=== PATIENT | male | born 1945 | race Caucasian/White ===

== ENCOUNTER 2017-05-23 17:53 | Inpatient (IN) | payer OTHER, MEDICAID ==
[~2017-05-23] VITALS: Ht 185.4 cm; Wt 83.5 kg
[~2017-05-23 17:53] MED LIST: BETH25TA47 PO; DEXL60EC5 PO; DONE10TA3 PO; FENT100T TD; FENT50TD45 TD; FOLI1TAB19 PO; LABE100T20 PO; METH-1177 PO; METO25TA PO; POTA20TE62 PO; PRED10TA5 PO; QUET150T PO; QUET400T PO; SILO8CAP PO; SUCR1TAB35 PO; TAMS0.4C96 PO; VENL150C1 PO; ZOLP10TA1 PO; [UNRECOGNIZED DRUG - CODE] PO
[2017-05-23 17:58] VITALS: BP 133/95
--- NOTE | 2017-05-23 18:17 | NUR ---
PATIENT BIB [facility] TO ER BED 4.
--- NOTE | 2017-05-23 18:17 | NUR ---
PATIENT BIB EMS WITH C/O GENERALYZED PAIN 6/10; CAME FROM [facility] RUN OUT OF FENTANYL PATCH;HX OF AFIB, AHD, ANXIETY;PT FEELS NAUSEOUS BUT DENIES VOMITTING;SKIN IS PINK/WARM/DRY; AAOX4 WITH EVEN AND STEADY GAIT; LUNGS CLEAR BL; HR EVEN AND REGULAR; PT DENIES ANY FEVER,SOB, OR COUGH AT THIS TIME; PATIENT STATES PAIN OF 6/10 AT THIS TIME;PATIENT POSITIONED FOR COMFORT; HOB ELEVATED; BEDRAILS UP X2; BED DOWN. ALL MONITORS IN PLACED;ER MD MADE AWARE OF PT STATUS.
[2017-05-23] MEDS ORDERED: fentaNYL 0.1 MG/HR PATCH TD SCH (18:25)
--- NOTE | 2017-05-23 18:36 | NUR ---
CALLED HOUSE SUP;FENTANYL PATCH IS NOT AVAILABLE IN [facility];
[2017-05-23 18:46] LABS: BASOPHILS # (AUTO) 0.5 K/uL (0.00-0.22); EOSINOPHILS # (AUTO) 0.2 K/uL (0-0.4); LYMPHOCYTES # (AUTO) 1.4 K/uL (2.0-11.5); MEAN CORPUSCULAR HEMOGLOBIN 30 pg (27-31); MEAN CORPUSCULAR HGB CONC 33 g/dL (33-37); MEAN CORPUSCULAR VOLUME 91 fL (80-94); MONOCYTES # (AUTO) 0.2 K/uL (0.8-1.0); NEUTROPHILS # (AUTO) 4.4 K/uL (1.8-7.7); PLATELET COUNT (AUTO) 152 K/uL (140-450); RED CELL DISTRIBUTION WIDTH 14.4 % (11.6-13.7); WHITE BLOOD COUNT (AUTO) 6.7 K/uL (4.8-10.8)
[2017-05-23 18:49] LABS: APPEARANCE,URINE HAZY (CLEAR); BILIRUBIN,URINE NEGATIVE (NEGATIVE); BLOOD, URINE 3+ (NEGATIVE); COLOR,URINE YELLOW (YELLOW); LEUKOCYTE ESTERASE ,URINE 3+ (NEGATIVE); NITRITE, URINE NEGATIVE (NEGATIVE); PH,URINE 8.5 (5.0-9.0); UGLUCOSE NEGATIVE (NEGATIVE)
[2017-05-23 18:52] LABS: RBC,URINE 11-20 (MOD) /HPF (0-5); WBC,URINE TOO MANY TO COUNT /HPF (0-5)
--- NOTE | 2017-05-23 19:18 | NUR ---
Pt report given to MIGUEL A JEAN. Transfer of care at this time.
[2017-05-23] MEDS ORDERED: fentaNYL 0.05 MG/ML VIAL IVP ONE (19:35)
[2017-05-23] MEDS ORDERED: NACL 0.9% 1,000 ML IV ONE (19:35)
[2017-05-23] MEDS ORDERED: LEVOFLOXACIN 500 MG/D5W PREMIX 100 ML IV ONE (19:40)
[2017-05-23] MEDS: NACL 0.9% 1,000 ML IV SCH (19:47)
[2017-05-23] MEDS ORDERED: ONDANSETRON 4 MG/2 ML VIAL IM/IVP PRN (19:50)
[2017-05-23] MEDS ORDERED: ACETAMINOPHEN 325 MG TAB PO PRN (19:50)
[2017-05-23] MEDS ORDERED: HYDROcodone/APAP 7.5/325 MG 1 TAB PO PRN (19:50)
[2017-05-23] MEDS ORDERED: DOCUSATE SODIUM 100 MG GELCAP PO PRN (19:50)
[2017-05-23 20:01] LABS: ANION GAP 13.5 (8-16); CARBON DIOXIDE 26.2 mmol/L (21-32); CHLORIDE 102 mmol/L (98-107); POTASSIUM 3.7 mmol/L (3.5-5.1); SODIUM SERUM 138 mmol/L (136-145)
[2017-05-23 20:02] LABS: ALBUMIN 3.1 g/dL (3.4-5.0); ASPARTATE AMINOTRANSFERASE 21 U/L (15-37); CREATININE 1.1 mg/dL (0.7-1.3); GLUCOSE 123 mg/dL (74-106); TOTAL BILIRUBIN 0.4 mg/dL (0.0-1.0); UREA NITROGEN, BLOOD 14 mg/dL (7-18)
--- NOTE | 2017-05-23 20:29 | NUR ---
Patient will be admitted to care of DR VELAZQUEZ. Admited to TELE 116. Will go to room 116. Belongings list completed. Report to ANNY JEAN .
[2017-05-23 20:50] VITALS: BP 126/101
--- NOTE | 2017-05-23 20:50 | NUR ---
ADMITTED PATIENT TO TELE UNIT, PATIENT AWAKE ALERT ORIENTED X4, NO S/S OF ACUTE DISTRESS NOTED, RESPIRATION EVEN AND UNLABORED. IV PATENT AND INTACT. LANDAVERDE IN PLACE AND DRAINING URINE BY GRAVITY. CALL LIGHT WITHIN REACH, SAFETY MEASURE ENSURED, WILL CONTINUE TO MONITOR.
[2017-05-23 21:00] LABS: MAGNESIUM 1.9 mg/dL (1.8-2.4); THYROID STIMULATING HORMONE 1.76 uIU/mL (0.34-3.74)
[2017-05-23] MEDS ORDERED: LABETALOL 100 MG TAB PO SCH (21:00)
--- NOTE | 2017-05-23 21:19 | NUR ---
Patient noted to have existing wounds upon arrival to ER. Photos taken of wound and placed in chart. Wound covered with dressing. Physician informed.
[2017-05-23] MEDS: ZOLPIDEM 10 MG TAB PO SCH (21:54)
[2017-05-23] MEDS: BETHANECHOL 25 MG TAB PO SCH (21:54)
[2017-05-23] MEDS: TAMSULOSIN 0.4 MG CAP PO SCH (21:55)
[2017-05-23] MEDS: QUEtiapine FUMARATE 100 MG TAB PO SCH (21:55)
[2017-05-23] MEDS: METOPROLOL 25 MG TAB PO SCH (21:55)
--- NOTE | 2017-05-23 22:00 | NUR ---
DR. LACEY WAS IN THE ROOM AND EXAMINED THE PATIENT. DR. LACEY SAID," YES, IT'S OKAY TO GIVE HIS PM MEDICATIONS." PM MEDICATIONS GIVEN, PATIENT TOLERATED WELL. WILL CONTINUE TO MONITOR.
[2017-05-24] MEDS: SUCRALFATE 1 GM TAB PO SCH ×4 (00:28→18:52)
[2017-05-24 00:32] VITALS: BP 76/64
[2017-05-24] MEDS ORDERED: NACL 0.9% 2,000 ML IV ONE (00:35)
[2017-05-24] MEDS ORDERED: LOPERAMIDE 1 MG/5 ML ORASYR PO PRN (00:40)
--- NOTE | 2017-05-24 00:56 | NUR ---
BP 76/64, HR 114. ASYMPTOMATIC, ORIENTED X4, PUT PATIENT IN REVERSE [place] POSITION. MADE DR. LACEY AWARE, RECEIVED ORDER OF GIVING NORMAL SALINE BOLUS 1 L FIRST, CHECK BP AFTER THE BOLUS, AND THEN NOTIFY HIM.
--- NOTE | 2017-05-24 02:17 | NUR ---
BP 90/62, HR 104, MADE DR. LACEY AWARE, RECEIVED INSTRUCTION TO START 1 L OF NORMAL SALINE BOLUS.
[2017-05-24 04:00] VITALS: BP 98/57
--- NOTE | 2017-05-24 04:05 | NUR ---
BP 98/57, HR 93. RR19. PATIENT SLEEPING IN BED, EASY TO AROUSE, NO S/S OF ACUTE DISTRESS NOTED, RESPIRATION EVEN AND UNLABORED, CALL LIGHT WITHIN REACH, SAFETY MEASURE ENSURED, WILL CONTINUE TO MONITOR.
--- NOTE | 2017-05-24 05:48 | NUR ---
PATIENT SLEEPING IN BED, NO S/S OF ACUTE DISTRESS NOTED, RESPIRATION EVEN AND UNLABORED, CALL LIGHT WITHIN REACH, SAFETY MEASURE ENSURED, WILL CONTINUE TO MONITOR.
[2017-05-24] MEDS: NACL 0.9% 1,000 ML IV SCH ×2 (06:33→19:02)
[2017-05-24 06:54] LABS: BASOPHILS # (AUTO) 0.3 K/uL (0.00-0.22); BASOPHILS % (AUTO) 4.4 % (0.0-2.0); EOSINOPHILS # (AUTO) 0.2 K/uL (0-0.4); HEMATOCRIT 35.5 % (36-52); HEMOGLOBIN 11.7 g/dL (12.0-18.0); LYMPHOCYTES # (AUTO) 2.4 K/uL (2.0-11.5); LYMPHOCYTES % (AUTO) 40.2 % (20.5-51.1); MEAN CORPUSCULAR HEMOGLOBIN 30 pg (27-31); MEAN CORPUSCULAR HGB CONC 33 g/dL (33-37); MEAN CORPUSCULAR VOLUME 92 fL (80-94); MONOCYTES # (AUTO) 0.4 K/uL (0.8-1.0); MONOCYTES % (AUTO) 6.2 % (1.7-9.3); NEUTROPHILS # (AUTO) 2.7 K/uL (1.8-7.7); NEUTROPHILS % (AUTO) 46.2 % (42.2-75.2); PLATELET COUNT (AUTO) 133 K/uL (140-450); RED BLOOD CELL COUNT(AUTO) 3.86 MIL/uL (4.20-6.10); RED CELL DISTRIBUTION WIDTH 14.4 % (11.6-13.7)
[2017-05-24 07:21] LABS: ANION GAP 10.8 (8-16); CARBON DIOXIDE 24.2 mmol/L (21-32); CHLORIDE 109 mmol/L (98-107); CREATININE 0.9 mg/dL (0.7-1.3); GLUCOSE 81 mg/dL (74-106); SODIUM SERUM 141 mmol/L (136-145); UREA NITROGEN, BLOOD 11 mg/dL (7-18)
--- NOTE | 2017-05-24 07:27 | NUR ---
PATIENT HAS BEEN SCREENED AND CATEGORIZED LOW NUTRITION RISK. PATIENT WILL BE SEEN WITHIN 7 DAYS OF ADMISSION. 05/29/17 ELSY PARKER MS, RDN
[2017-05-24 07:29] LABS: MAGNESIUM 1.7 mg/dL (1.8-2.4); PHOSPHORUS 3.8 mg/dL (2.5-4.9)
--- NOTE | 2017-05-24 07:31 | NUR ---
ENDORSED PLAN OF CARE TO DAY RN. PATIENT IS IN STABLE CONDITION.
--- NOTE | 2017-05-24 07:31 | NUR ---
RECEIVED REPORT FROM PM NURSE FOR CONTINUITY OF CARE. INITIAL ASSESSMENT DONE. PT SLEEPING BUT AWAKENS EASILY. RESP EVEN AND UNLABORED. IV IS PATENT, NO SWELLING OR REDNESS NOTED. SKIN IS WARM AND DRY, ERYTHEMA NOTED ON PT'S BUTTOCKS AND SCROTAL AREA. DISCUSSED PLAN OF CARE WITH PT, VERBALIZED UNDERSTANDING. SAFETY PLACED IN MEASURE. BED LOCKED ON LOW POSITION, CALL LIGHT WITHIN REACH, SIDE RAILS UP. WILL CONTINUE TO MONITOR.
[2017-05-24 08:00] VITALS: BP 105/71
[2017-05-24] MEDS: FOLIC ACID 1 MG TAB PO SCH (09:41)
[2017-05-24] MEDS: POTASSIUM CHLORIDE 10 MEQ TABER PO SCH (09:41)
[2017-05-24] MEDS: VENLAFAXINE XR 75 MG CAPER PO SCH (09:43)
[2017-05-24] MEDS: BETHANECHOL 25 MG TAB PO SCH ×2 (09:43→21:18)
[2017-05-24] MEDS: DONEPEZIL 10 MG TAB PO SCH (09:43)
[2017-05-24] MEDS: METOPROLOL 25 MG TAB PO SCH ×2 (09:52→21:31)
[2017-05-24] MEDS ORDERED: MAG SULF 2000 MG/WATER PREMIX 50 ML IV ONE (10:30)
--- NOTE | 2017-05-24 10:49 | NUR ---
PT STATED THAT NORCO DID NOT WORK, REQUESTING MORPHINE. WILL MEDICATE PER MD'S ORDER. VS STABLE. SAFETY MEASURES IN PLACE. WILL CONTINUE TO MONITOR. Addendum: 05/24/17 at 1526 by Vikki Weinberg RN AWAITING FOR MD'S ORDERS
[2017-05-24] MEDS ORDERED: POTASSIUM CHLORIDE 40 MEQ, LIDOCAINE 1% 25 MG in NACL 0.9% 250 ML IV ONE (11:00)
[2017-05-24] MEDS: MORPHINE SULFATE 2 MG/ML SYR IVP PRN (11:03)
[2017-05-24 12:00] VITALS: BP 107/68
--- NOTE | 2017-05-24 13:42 | NUR ---
PT'S BROTHER, EVA, CALLED AND STATED THAT [facility] HAS SHUTTLE SERVICE AND TO CALL THEM @[phone] UPON PT'S DISCHARGE. HE ALSO STATED TO CALL HIM @ [phone] FOR ANY QUESTIONS AND CLARIFICATION. PT GAVE CONSENT TO RELEASE INFORMATION TO HIS BROTHER.
[2017-05-24] MEDS ORDERED: BISACODYL 10 MG SUPP RC PRN (14:20)
[2017-05-24] MEDS ORDERED: fentaNYL 0.075 MG/HR PATCH TD SCH (15:00)
--- NOTE | 2017-05-24 15:13 | NUR ---
AWAITING FOR MD'S ORDER. Addendum: 05/24/17 at 1637 by Vikki Weinberg RN PT C/O GENERALIZED PAIN, STATED MORPHINE AND NORCO IS NOT WORKING. PT IS REQUESTING FOR FENTANYL. INFORMED MD. AWAITING FOR ORDERS.
--- NOTE | 2017-05-24 15:50 | NUR ---
DC'ED PT'S OLD LANDAVERDE, CATH TIP SENT TO THE LAB PER MD'S ORDER. INSERTED NEW 16FR LANDAVERDE USING STERILE TECHNIQUE. PT TOLERATED PROCEDURE WELL. URINE RETURN NOTED, LIGHT YELLOW URINE WITH SEDIMENTS. FENTANYL PATCH APPLIED ON CHEST WALL PER MD'S ORDER. STOOL SOFTENER AND SUPPOSITORY GIVEN PER PT'S REQUEST. WILL CONTINUE TO MONITOR.
[2017-05-24 16:00] VITALS: BP 141/87
[2017-05-24] MEDS: fentaNYL 0.075 MG/HR PATCH TD SCH (16:30)
--- NOTE | 2017-05-24 16:35 | NUR ---
PT C/O GENERALIZED PAIN, STATED MORPHINE AND NORCO IS NOT WORKING. PT IS REQUESTING FOR FENTANYL. INFORMED MD. AWAITING FOR ORDERS. Addendum: 05/24/17 at 1637 by Vikki Weinberg RN PLEASE DISREGARD ABOVE NOTE. DUPLICATE.
--- NOTE | 2017-05-24 18:38 | NUR ---
PT REPORTS FENTANYL PATCH STARTING TO WORK ON HIS PAIN, RESP EVEN UNLABORED ON ROOM AIR, PT SPEAKING CLEARLY WITHOUT PROBLEM, PT APPEARS COMFORTABLE. CALL SILVA WITHIN REACH, SIDE RAILS UP, LANDAVERDE DRAINING WELL, WILL CONTIUE TO MONITOR.
--- NOTE | 2017-05-24 18:55 | NUR ---
LAB CALLED, REQUESTED TO CHANGE ORDER TO AEROBIC CULTURE SOURCE CATHETER. INFORMED .
--- NOTE | 2017-05-24 19:42 | NUR ---
ENDORSED CARE TO PM NURSE FOR CONTINUITY OF CARE. PT IN STABLE CONDITION.
--- NOTE | 2017-05-24 19:43 | NUR ---
RECD. RESTING IN BED, AWAKE, A/OX4. BLIND IN THE LEFT EYE. RESPIRATION EVEN AND UNLABORED. IV OF NS AT 80 ML/HR INFUSING , RIGHT FA G 22. F/C PATENT DRAINING CLEAR YELLOW URINE. ON BILATERAL LEG SEQUENTIALS. SAFETY MEASURES ENFORCED. BED ON ALARM. VERBALIZED UNDERSTANDING. DENIES PAIN 0/10.
[2017-05-24 20:00] VITALS: BP 144/85
[2017-05-24] MEDS ORDERED: LEVOFLOXACIN 500 MG/D5W PREMIX 100 ML IV SCH (21:00)
--- NOTE | 2017-05-24 21:00 | NUR ---
Patient's Plan of Care was discussed and reviewed with CHUMMER: AILEEN RICO
[2017-05-24] MEDS: ZOLPIDEM 10 MG TAB PO SCH (21:17)
[2017-05-24] MEDS: PREGABALIN 50 MG CAP PO SCH (21:17)
[2017-05-24] MEDS: TAMSULOSIN 0.4 MG CAP PO SCH (21:17)
[2017-05-24] MEDS: QUEtiapine FUMARATE 100 MG TAB PO SCH (21:18)
[2017-05-24] MEDS: APIXABAN 2.5 MG TAB PO SCH (21:20)
--- NOTE | 2017-05-24 21:20 | NUR ---
DUE PO MEDICATIONS GIVEN. STATED HE TAKES TRAZADONE AT NIGHT. HE HAS BEEN DRINKING IT FOR YEARS BUT WAS NOT IN THE MED RECONCILIATION. WILL INFORM
[2017-05-24] MEDS: LEVOFLOXACIN 250 MG/D5 PREMIX 50 ML IV SCH (21:59)
[2017-05-24] MEDS ORDERED: LORazepam 0.5 MG TAB PO SCH (22:25)
[2017-05-25] VITALS (7 sets, daily range): BP systolic 104–134; BP diastolic 69–86
--- NOTE | 2017-05-25 00:15 | NUR ---
GETTING ANXIETY REGARDING HIS REQUEST FOR TRAZODONE. MEDICATED WITH ATIVAN 0.5 MG.PO.
--- NOTE | 2017-05-25 01:10 | NUR ---
NO ANXIETY NOTED, SLEEPING SNORING IN BED.
[2017-05-25] MEDS: NACL 0.9% 1,000 ML IV SCH ×3 (02:59→18:10)
[2017-05-25] MEDS: SUCRALFATE 1 GM TAB PO SCH ×4 (06:00→18:00)
[2017-05-25 06:12] LABS: HEMATOCRIT 34.8 % (36-52); HEMOGLOBIN 11.3 g/dL (12.0-18.0); MEAN CORPUSCULAR HEMOGLOBIN 30 pg (27-31); MEAN CORPUSCULAR HGB CONC 32 g/dL (33-37); MEAN CORPUSCULAR VOLUME 93 fL (80-94); PLATELET COUNT (AUTO) 134 K/uL (140-450); RED BLOOD CELL COUNT(AUTO) 3.75 MIL/uL (4.20-6.10); RED CELL DISTRIBUTION WIDTH 15.1 % (11.6-13.7); WHITE BLOOD COUNT (AUTO) 4.9 K/uL (4.8-10.8)
[2017-05-25 06:44] LABS: ANION GAP 9.6 (8-16); CARBON DIOXIDE 26.2 mmol/L (21-32); CHLORIDE 111 mmol/L (98-107); CREATININE 0.8 mg/dL (0.7-1.3); GLUCOSE 81 mg/dL (74-106); POTASSIUM 3.8 mmol/L (3.5-5.1); SODIUM SERUM 143 mmol/L (136-145); UREA NITROGEN, BLOOD 8 mg/dL (7-18)
[2017-05-25 06:45] LABS: PHOSPHORUS 3.6 mg/dL (2.5-4.9)
--- NOTE | 2017-05-25 07:00 | NUR ---
ABLE TO SLEPT WELL. CONDITION REMAIN STABLE. ALL NEEDS ATTENDED. SAFETY MAINTAINED DURING SHIFT. WILL ENDORSE TO AM NURSE FOR CONTINUITY OF CARE.
--- NOTE | 2017-05-25 07:14 | NUR ---
ASSUMED CONTINUITY OF CARE. NO SIGNS AND SYMPTOMS OF ACUTE DISTRESS NOTED. INITIAL ASSESSMENT DONE. KEEP COMFORTABLE ON BED. EXPLAINED DIAGNOSIS, PLAN OF CARE, PAIN MANAGEMENT TEACHING, CONTACT ISOLATION PRECAUTION, USE OF CALL LIGHT/BED/TV/BATHROOM. VERBALIZED UNDERSTANDING. FALL PRECAUTION APPLIED. CALL LIGHT WITHIN REACH.
--- NOTE | 2017-05-25 07:20 | NUR ---
ENDORSED TO FRANCIS WORKMAN FOR CONTINUITY OF CARE.
[2017-05-25 07:54] LABS: EOSINOPHILS % (MANUAL) 8 % (0-4); LYMPHOCYTES % (MANUAL) 46 % (20-46); MONOCYTES % (MANUAL) 5 % (5-12)
--- NOTE | 2017-05-25 08:00 | NUR ---
Patient's Plan of Care was discussed and reviewed with POSTDOCTORAL FELLOW: MADALYN HARRISON
[2017-05-25] MEDS: DONEPEZIL 10 MG TAB PO SCH (08:27)
[2017-05-25] MEDS: LACTOBACILLUS RHAMNOSUS GG 1 EACH CAP PO SCH (08:28)
[2017-05-25] MEDS: VENLAFAXINE XR 75 MG CAPER PO SCH (08:28)
[2017-05-25] MEDS: FOLIC ACID 1 MG TAB PO SCH (08:29)
[2017-05-25] MEDS: METOPROLOL 25 MG TAB PO SCH ×2 (08:29→21:55)
[2017-05-25] MEDS: POTASSIUM CHLORIDE 10 MEQ TABER PO SCH (08:29)
[2017-05-25] MEDS: BETHANECHOL 25 MG TAB PO SCH ×2 (08:30→20:24)
[2017-05-25] MEDS: PREGABALIN 50 MG CAP PO SCH ×2 (08:30→20:25)
[2017-05-25] MEDS: APIXABAN 2.5 MG TAB PO SCH ×2 (08:33→20:42)
--- NOTE | 2017-05-25 09:05 | NUR ---
WENT TO CT VIA [facility]. NO ACUTE DISTRESS NOTED.
[2017-05-25] MEDS ORDERED: MUPIROCIN 2% OINT 22 GM TUBE TP SCH (09:42)
[2017-05-25] MEDS: CHLORHEXADINE GLUC 2% CLOTH TP SCH (10:37)
--- NOTE | 2017-05-25 11:30 | NUR ---
DR. WONG, [facility], CHECKED PT. CHART. NO ORDER RECEIVED.
--- NOTE | 2017-05-25 12:57 | NUR ---
INFORMED DR. CORDERO THAT PT. REFUSING CARAFATE [address] GM PO Q[address] CORDERO, SHE WILL D/C MEDS.
[2017-05-25] MEDS: ALUMINUM HYD/MAG/SIMETHICONE 30 ML UDC PO PRN (18:11)
--- NOTE | 2017-05-25 18:58 | NUR ---
IN STABLE CONDITION. IVF INFUSING WELL.
--- NOTE | 2017-05-25 19:30 | NUR ---
RECEIVED REPORT FROM DAY RN AT BEDSIDE, PATIENT IS AAO X4 ON ROOM AIR, NO SOB OR SIGN OF DISTRESS AT THIS TIME, IV TO RIGHT FA PATENT AND INTACT, PATIENT SKIN INTACT WITH ERYTHEMA TO BUTTOCKS AND PERINEUM. PATIENT IS BLIND IN LEFT EYE. LANDAVERDE PRESENT DRAINING TO GRAVITY. SCDS ON. PATIENT DENIES PAIN AT THIS TIME. DISCUSSED PLAN OF CARE WITH PATIENT, PT VERBALIZED UNDERSTANDING, CALL LIGHT WITHIN REACH. WILL CONTINUE TO MONITOR.
[2017-05-25] MEDS: ZOLPIDEM 10 MG TAB PO SCH (20:25)
[2017-05-25] MEDS: QUEtiapine FUMARATE 100 MG TAB PO SCH (20:26)
[2017-05-25] MEDS: LEVOFLOXACIN 250 MG/D5 PREMIX 50 ML IV SCH (20:29)
[2017-05-25] MEDS: TAMSULOSIN 0.4 MG CAP PO SCH (20:37)
--- NOTE | 2017-05-25 20:38 | NUR ---
PM MEDS ADMINISTERED, PATIENT TOLERATED WELL, CALL LIGHT WITHIN REACH. WILL CONTINUE TO MONITOR.
--- NOTE | 2017-05-25 22:30 | NUR ---
PATIENT SLEEPING, NO SIGN OF DISTRESS, CALL LIGHT WITHIN REACH. WILL CONTINUE TO MONITOR.
[2017-05-26] VITALS: BP 108/61
--- NOTE | 2017-05-26 00:36 | NUR ---
VITAL SIGNS STABLE, PT SLEEPING, EASILY AWOKEN. NO SIGNS OF DISTRESS, CALL LIGHT WITHIN REACH. WILL CONTINUE TO MONITOR.
--- NOTE | 2017-05-26 02:00 | NUR ---
PATIENT SLEEPING, NO SIGN OF DISTRESS, CALL LIGHT WITHIN REACH. WILL CONTINUE TO MONITOR
[2017-05-26 04:00] VITALS: BP 103/58
--- NOTE | 2017-05-26 04:05 | NUR ---
VITAL SIGNS STABLE, NO SOB OR SIGN OF DISTRESS, CALL LIGHT WITHIN REACH. WILL CONTINUE TO MONITOR
[2017-05-26] MEDS: SUCRALFATE 1 GM TAB PO SCH ×4 (05:07→17:04)
[2017-05-26 06:31] LABS: BASOPHILS # (AUTO) 0.2 K/uL (0.00-0.22); BASOPHILS % (AUTO) 4.6 % (0.0-2.0); EOSINOPHILS # (AUTO) 0.3 K/uL (0-0.4); EOSINOPHILS % (AUTO) 5.4 % (0.0-4.0); HEMATOCRIT 33.8 % (36-52); LYMPHOCYTES # (AUTO) 2.1 K/uL (2.0-11.5); LYMPHOCYTES % (AUTO) 43.5 % (20.5-51.1); MEAN CORPUSCULAR HEMOGLOBIN 30 pg (27-31); MEAN CORPUSCULAR HGB CONC 33 g/dL (33-37); MEAN CORPUSCULAR VOLUME 93 fL (80-94); MONOCYTES # (AUTO) 0.3 K/uL (0.8-1.0); MONOCYTES % (AUTO) 5.9 % (1.7-9.3); NEUTROPHILS % (AUTO) 40.6 % (42.2-75.2); PLATELET COUNT (AUTO) 137 K/uL (140-450); RED BLOOD CELL COUNT(AUTO) 3.63 MIL/uL (4.20-6.10); RED CELL DISTRIBUTION WIDTH 15.1 % (11.6-13.7); WHITE BLOOD COUNT (AUTO) 4.9 K/uL (4.8-10.8)
[2017-05-26 06:48] LABS: ANION GAP 10.9 (8-16); CARBON DIOXIDE 26.2 mmol/L (21-32); CHLORIDE 111 mmol/L (98-107); CREATININE 0.8 mg/dL (0.7-1.3); GLUCOSE 75 mg/dL (74-106); POTASSIUM 4.1 mmol/L (3.5-5.1); SODIUM SERUM 144 mmol/L (136-145); UREA NITROGEN, BLOOD 8 mg/dL (7-18)
--- NOTE | 2017-05-26 07:19 | NUR ---
ENDORSED PATIENT TO DAY RN AT BEDSIDE, PATIENT IN STABLE CONDITION
[2017-05-26 08:00] VITALS: BP 135/78
--- NOTE | 2017-05-26 08:00 | NUR ---
Patient's Plan of Care was discussed and reviewed with SPEEDBOAT OPERATOR: MADALYN HARRISON
[2017-05-26] MEDS: NACL 0.9% 1,000 ML IV SCH ×2 (08:32→21:02)
[2017-05-26] MEDS: METOPROLOL 25 MG TAB PO SCH ×2 (08:33→16:44)
[2017-05-26] MEDS: TAMSULOSIN 0.4 MG CAP PO SCH (08:34)
[2017-05-26] MEDS: POTASSIUM CHLORIDE 10 MEQ TABER PO SCH (08:34)
[2017-05-26] MEDS: BETHANECHOL 25 MG TAB PO SCH ×2 (08:34→20:21)
[2017-05-26] MEDS: PREGABALIN 50 MG CAP PO SCH ×2 (08:34→20:21)
[2017-05-26] MEDS: FOLIC ACID 1 MG TAB PO SCH (08:34)
[2017-05-26] MEDS: LACTOBACILLUS RHAMNOSUS GG 1 EACH CAP PO SCH (08:34)
[2017-05-26] MEDS: VENLAFAXINE XR 75 MG CAPER PO SCH (08:35)
[2017-05-26] MEDS: MUPIROCIN 2% OINT 22 GM TUBE TP SCH (08:37)
[2017-05-26] MEDS: APIXABAN 2.5 MG TAB PO SCH ×2 (08:37→20:28)
[2017-05-26] MEDS: CHLORHEXADINE GLUC 2% CLOTH TP SCH (08:38)
--- NOTE | 2017-05-26 09:10 | NUR ---
DR. WONG CAME, CHECKED PT. CHART. NO ORDER RECEIVED.
--- NOTE | 2017-05-26 09:20 | NUR ---
INFORMED DR. KIRK REGARDING PT. ALLERGY TO PCN, AND PT. REFUSAL OF CARAFATE 1 GM PO Q6.
[2017-05-26] MEDS ORDERED: GENTAMICIN PER PHARMACY MC PRN (09:55)
--- NOTE | 2017-05-26 10:15 | NUR ---
PHYSICAL THERAPIST CAME FOR PT. PT EVAL AND TREATMENT.
[2017-05-26 12:00] VITALS: BP 132/86
[2017-05-26] MEDS ORDERED: PIPER/TAZO 3.375GM/D5W PREMIX 50 ML IV SCH (12:00)
[2017-05-26] MEDS: GENTAMICIN 100 MG in DEXTROSE 5% 100 ML IV SCH (12:31)
[2017-05-26] MEDS: SODIUM PHOSPHATE 118 ML ENEM RC PRN (14:15)
--- NOTE | 2017-05-26 14:54 | NUR ---
SS NOTE: PER REJI FROM [facility], THEY ARE UNABLE TO ACCEPT PT BECAUSE THEY DO NOT HAVE ANY MALE BEDS AVAILABLE PER JOE FROM [facility], PT DOES NOT HAVE ANYMORE MEDICARE SKILLED SNF DAYS LEFT. HE ALSO STATED THAT THEY WILL REVIEW PT'S INFORMATION AND SEE IF THEY ARE ABLE TO ACCEPT PT OR NOT. Addendum: 05/26/17 at 1613 by Lizbeth Falk SS PER SOFIYA FROM [facility], THEY ARE UNABLE TO ACCEPT PT
--- NOTE | 2017-05-26 15:10 | NUR ---
REPORT GIVEN TO ALICIA AGUIRRE FOR CONTINUITY OF CARE. PT. IN STABLE CONDITION. IVF INFUSING WELL.
--- NOTE | 2017-05-26 15:11 | NUR ---
RECEIVED REPORT FROM FRANCIS WORKMAN. PATIENT AWAKE AND ALERT, NO SIGNS OF ACUTE DISTRESS. BOWEL SOUNDS ACTIVE IN ALL 4 QUADRANTS. LANDAVERDE CATHETER IN PLACE. IV PATENT AND ASYMPTOMATIC. SKIN INTACT WITH REDNESS ON SCROTAL AREA. PATIENT ON BEDREST. BED IN LOW POSITION WITH BILATERAL HALF SIDE RAILS UP, CALL LIGHT WITHIN REACH. WILL CONTINUE TO MONITOR.
[2017-05-26 16:00] VITALS: BP 119/79
--- NOTE | 2017-05-26 16:29 | NUR ---
SS NOTE: PER NAYAN FROM [facility] ([phone]), THEY ARE ABLE TO ACCEPT PT UPON DISCHARGE AND PT CAN GO TO ROOM 14A UNDER DR. Kristy MAZARIEGOS.
[2017-05-26] MEDS: ALUMINUM HYD/MAG/SIMETHICONE 30 ML UDC PO PRN (16:58)
[2017-05-26] MEDS: MORPHINE SULFATE 2 MG/ML SYR IVP PRN (16:59)
[2017-05-26] MEDS ORDERED: METHOTREXATE 2.5 MG TAB PO SCH (17:00)
--- NOTE | 2017-05-26 17:22 | NUR ---
PATIENT RESTING COMFORTABLY IN BED WATCHING TELEVISION, NO SIGNS OF ACUTE DISTRESS. BED IN LOW POSITION WITH BILATERAL HALF SIDE RAILS UP, CALL LIGHT WITHIN REACH. WILL CONTINUE TO MONITOR.
--- NOTE | 2017-05-26 19:25 | NUR ---
PT AWAKE AND ALERT, NO SIGNS OF ACUTE DISTRESS. ENDORSED TO WATERPROOFER HELPER NURSE FOR CONTINUITY OF CARE.
[2017-05-26 20:00] VITALS: BP 122/76
[2017-05-26] MEDS: ZOLPIDEM 10 MG TAB PO SCH (20:21)
[2017-05-26] MEDS: QUEtiapine FUMARATE 100 MG TAB PO SCH (20:21)
[2017-05-26] MEDS: DONEPEZIL 10 MG TAB PO SCH (20:21)
[2017-05-26] MEDS: POLYETHYLENE GLYCOL 17 GM/PKT PO SCH (20:22)
--- NOTE | 2017-05-26 20:29 | NUR ---
PM MEDS ADMINISTERED, PATIENT TOLERATED WELL, RESTING IN BED, NO COMPLAINTS AT THIS TIME. CALL LIGHT WITHIN REACH. WILL CONTINUE TO MONITOR
[2017-05-26] MEDS ORDERED: LEVOFLOXACIN 500 MG/D5W PREMIX 100 ML IV SCH (21:00)
[2017-05-27] VITALS: BP 101/50
--- NOTE | 2017-05-27 00:05 | NUR ---
VITAL SIGNS STABLE, NO SOB OR SIGN OF DISTRESS, CALL LIGHT WITHIN REACH. WILL CONTINUE TO MONITOR.
[2017-05-27] MEDS: GENTAMICIN 100 MG in DEXTROSE 5% 100 ML IV SCH ×2 (00:27→11:41)
--- NOTE | 2017-05-27 02:10 | NUR ---
PATIENT SLEEPING, NO SOB OR SIGN OF DISTRESS, CALL LIGHT WITHIN REACH. WILL CONTINUE TO MONITOR.
[2017-05-27 04:00] VITALS: BP 114/78
--- NOTE | 2017-05-27 04:05 | NUR ---
VITAL SIGNS STABLE, NO SIGN OF DISTRESS, CALL LIGHT WITHIN REACH. WILL CONTINUE TO MONITOR
[2017-05-27] MEDS: SUCRALFATE 1 GM TAB PO SCH ×4 (05:04→17:19)
[2017-05-27 06:25] LABS: ANION GAP 10.7 (8-16); CARBON DIOXIDE 28.1 mmol/L (21-32); CHLORIDE 109 mmol/L (98-107); CREATININE 0.9 mg/dL (0.7-1.3); GLUCOSE 75 mg/dL (74-106); POTASSIUM 4.8 mmol/L (3.5-5.1); SODIUM SERUM 143 mmol/L (136-145); UREA NITROGEN, BLOOD 9 mg/dL (7-18)
--- NOTE | 2017-05-27 07:25 | NUR ---
ENDORSED PATIENT TO DAY RN AT BEDSIDE, PATIENT IN STABLE CONDITION
--- NOTE | 2017-05-27 07:26 | NUR ---
RECEIVED PATIENT REPORT AT BEDSIDE FROM EVENING NURSE. PATIENT IS RESTING COMFORTABLY IN BED. NO SIGNS AND SYMPTOMS OF DISTRESS NOTED. IV SITE NOTED ON RIGHT FOREARM, IVF INFUSING WELL. LANDAVERDE CATHETER NOTED, URINE IS LIGHT YELLOW. BED IS IN LOWEST POSITION, SIDE RAILS UP AND CALL LIGHT WITHIN REACH. WILL CONTINUE TO MONITOR.
[2017-05-27 08:00] VITALS: BP 126/93
[2017-05-27] MEDS: FOLIC ACID 1 MG TAB PO SCH (08:10)
[2017-05-27] MEDS: PREGABALIN 50 MG CAP PO SCH ×2 (08:11→20:22)
[2017-05-27] MEDS: METOPROLOL 25 MG TAB PO SCH ×2 (08:11→16:45)
[2017-05-27] MEDS: BETHANECHOL 25 MG TAB PO SCH ×2 (08:11→20:22)
[2017-05-27] MEDS: LACTOBACILLUS RHAMNOSUS GG 1 EACH CAP PO SCH (08:11)
[2017-05-27] MEDS: TAMSULOSIN 0.4 MG CAP PO SCH (08:11)
[2017-05-27] MEDS: VENLAFAXINE XR 75 MG CAPER PO SCH (08:11)
[2017-05-27] MEDS: POLYETHYLENE GLYCOL 17 GM/PKT PO SCH ×2 (08:13→09:08)
[2017-05-27] MEDS: APIXABAN 2.5 MG TAB PO SCH ×2 (08:15→20:30)
[2017-05-27 08:56] LABS: T4 (THYROXINE) 4.3 ug/dL (4.5 - 12.0)
[2017-05-27] MEDS: POTASSIUM CHLORIDE 10 MEQ TABER PO SCH (09:00)
[2017-05-27] MEDS: MUPIROCIN 2% OINT 22 GM TUBE TP SCH (09:09)
[2017-05-27] MEDS: NACL 0.9% 1,000 ML IV SCH ×2 (09:32→22:31)
[2017-05-27] MEDS: CHLORHEXADINE GLUC 2% CLOTH TP SCH (10:08)
[2017-05-27] MEDS: ALUMINUM HYD/MAG/SIMETHICONE 30 ML UDC PO PRN (11:40)
[2017-05-27] MEDS: MORPHINE SULFATE 2 MG/ML SYR IVP PRN ×2 (11:46→20:23)
[2017-05-27 12:00] VITALS: BP 125/85
--- NOTE | 2017-05-27 12:00 | NUR ---
PATIENT SEEN BY DR. MAZARIEGOS
--- NOTE | 2017-05-27 12:01 | NUR ---
NOTIFIED DR. MAZARIEGOS ABOUT PATIENT'S POTASSIUM LEVEL OF 4.8. SAID THAT IT WAS OK TO HOLD TODAY'S DOSE OF POTASSIUM.
--- NOTE | 2017-05-27 12:02 | NUR ---
NOTIFIED DR. MAZARIEGOS ABOUT THE PATIENT'S SHORT RUN OF V-TACH SEEN ON THE MONITOR.
--- NOTE | 2017-05-27 15:00 | NUR ---
SS NOTE: I SPOKE WITH PT BEDSIDE AND INFORMED HIM THAT [facility] ABLE TO ACCEPT HIM UPON DISCHARGE. PT STATED THAT HE IS IN AGREEMENT WITH GOING THERE UPON DISCHARGE.
[2017-05-27 16:00] VITALS: BP 118/54
[2017-05-27] MEDS: SODIUM PHOSPHATE 118 ML ENEM RC PRN (17:13)
[2017-05-27] MEDS: fentaNYL 0.075 MG/HR PATCH TD SCH (17:44)
--- NOTE | 2017-05-27 19:22 | NUR ---
PATIENT REPORT GIVEN TO EVENING NURSE AT BEDSIDE. PATIENT IS IN STABLE CONDITION.
--- NOTE | 2017-05-27 19:23 | NUR ---
RECEIVED REPORT FROM AM NURSE. PATIENT IS RESTING IN BED, AOX4, ABLE TO MAKE NEEDS KNOWN. WITH NO S/S OF DISTRESS NOTED. ON CONTACT PRECAUTION FOR MRSA NARES. ON TELE MONITORING. IV NOTED ON THE RIGHT FA 20 G, INTACT AND PATENT. ON TELE MONITORING. LANDAVERDE CATHETER IN PLACE. RE-ORIENTED PT TO THE UNIT, VERBALIZED UNDERSTANDING. WILL CONTINUE TO MONITOR. ALL NEEDS ATTENDED. CALL LIGHT WITHIN REACH. SAFETY CHECKS IN PLACE.
[2017-05-27 20:00] VITALS: BP 129/87
[2017-05-27] MEDS: DONEPEZIL 10 MG TAB PO SCH (20:22)
[2017-05-27] MEDS: QUEtiapine FUMARATE 100 MG TAB PO SCH (20:22)
[2017-05-27] MEDS: ZOLPIDEM 10 MG TAB PO SCH (20:23)
--- NOTE | 2017-05-27 20:23 | NUR ---
DUE MEDS GIVEN, WELL TOLERATED BY PATIENT. COMPLAINED OF GENERALIZED PAIN 8/10, GAVE MORPHINE. WILL CONTINUE TO MONITOR.
[2017-05-28] VITALS (7 sets, daily range): BP systolic 109–133; BP diastolic 65–90
--- NOTE | 2017-05-28 | NUR ---
DUE MEDS GIVEN, WELL TOLERATED BY PATIENT. VITAL SIGNS STABLE. WILL CONTINUE TO MONITOR. ALL NEEDS ATTENDED. CALL LIGHT WITHIN REACH. SAFETY CHECKS IN PLACE.
--- NOTE | 2017-05-28 02:12 | NUR ---
MADE ROUNDS, PATIENT ASLEEP. NO S/S OF DISTRESS. WILL CONTINUE TO MONITOR.
--- NOTE | 2017-05-28 04:00 | NUR ---
VITAL SIGNS STABLE. NO S/S OF DISTRESS. NO COMPLAINTS OF PAIN. WILL CONTINUE TO MONITOR. ALL NEEDS ATTENDED. CALL LIGHT WITHIN REACH. SAFETY CHECKS IN PLACE.
[2017-05-28] MEDS: SUCRALFATE 1 GM TAB PO SCH ×4 (05:27→18:00)
[2017-05-28] MEDS: GENTAMICIN 100 MG in DEXTROSE 5% 100 ML IV SCH (05:29)
--- NOTE | 2017-05-28 05:29 | NUR ---
DUE MEDS GIVEN, WELL TOLERATED BY PATIENT. WILL CONTINUE TO MONITOR. ALL NEEDS ATTENDED. CALL LIGHT WITHIN REACH. SAFETY CHECKS IN PLACE.
[2017-05-28 06:45] LABS: HEMATOCRIT 35.3 % (36-52); HEMOGLOBIN 11.9 g/dL (12.0-18.0); MEAN CORPUSCULAR HEMOGLOBIN 31 pg (27-31); MEAN CORPUSCULAR HGB CONC 34 g/dL (33-37); MEAN CORPUSCULAR VOLUME 93 fL (80-94); PLATELET COUNT (AUTO) 143 K/uL (140-450); RED CELL DISTRIBUTION WIDTH 15.2 % (11.6-13.7); WHITE BLOOD COUNT (AUTO) 5.4 K/uL (4.8-10.8)
[2017-05-28 06:49] LABS: ANION GAP 8.4 (8-16); CARBON DIOXIDE 28.8 mmol/L (21-32); CHLORIDE 107 mmol/L (98-107); CREATININE 0.9 mg/dL (0.7-1.3); GLUCOSE 82 mg/dL (74-106); POTASSIUM 4.2 mmol/L (3.5-5.1); SODIUM SERUM 140 mmol/L (136-145); UREA NITROGEN, BLOOD 9 mg/dL (7-18)
--- NOTE | 2017-05-28 07:23 | NUR ---
ENDORSED TO AM SHIFT FOR CONTINUITY OF CARE, IN STABLE CONDITION.
--- NOTE | 2017-05-28 07:25 | NUR ---
RECEIVED REPORT FROM ENGINEER RF DEPLOYMENT NURSE AT PT BEDSIDE. PT IS AAOX4, ON ROOM AIR, SKIN INTACT, LANDAVERDE CATHETER IN PLACE WITH CLEAR YELLOW URINE. ERYTHEMA AT SCROTUM. 20 GAUGE IV ON RIGHT FOREARM WITH IV FLUIDS INFUSING AT 80ML/HR. PT ON MANAGER LICENSING, NO C/O PAIN. DISCUSSED PLAN OF CARE WITH PT, PT VERBALIZED UNDERSTANDING. PT IS STABLE, WITHOUT SIGNS OF DISTRESS. BED IN LOW POSITION, CALL LIGHT WITHIN REACH. WILL CONTINUE TO MONITOR.
[2017-05-28 07:38] LABS: EOSINOPHILS % (MANUAL) 2 % (0-4); LYMPHOCYTES % (MANUAL) 50 % (20-46); MONOCYTES % (MANUAL) 2 % (5-12)
[2017-05-28] MEDS: POTASSIUM CHLORIDE 10 MEQ TABER PO SCH (08:39)
[2017-05-28] MEDS: FOLIC ACID 1 MG TAB PO SCH (08:39)
[2017-05-28] MEDS: LACTOBACILLUS RHAMNOSUS GG 1 EACH CAP PO SCH (08:39)
[2017-05-28] MEDS: METOPROLOL 25 MG TAB PO SCH ×2 (08:40→17:32)
[2017-05-28] MEDS: VENLAFAXINE XR 75 MG CAPER PO SCH (08:40)
[2017-05-28] MEDS: BETHANECHOL 25 MG TAB PO SCH ×2 (08:40→21:03)
[2017-05-28] MEDS: TAMSULOSIN 0.4 MG CAP PO SCH (08:41)
[2017-05-28] MEDS: PREGABALIN 50 MG CAP PO SCH ×2 (08:41→21:03)
[2017-05-28] MEDS: POLYETHYLENE GLYCOL 17 GM/PKT PO SCH ×2 (08:42→21:03)
[2017-05-28] MEDS: APIXABAN 2.5 MG TAB PO SCH ×2 (08:49→21:09)
--- NOTE | 2017-05-28 08:50 | NUR ---
ADMINISTERED SCHEDULED MEDICATIONS. PT TOLERATED WELL. PT STABLE, NO SIGNS OF DISTRESS NOTED. BED IN LOW POSITION, CALL LIGHT WITHIN REACH. WILL CONTINUE TO MONITOR. Addendum: 05/28/17 at 0902 by Monica Morris RN PT REFUSED MIRALAX.
[2017-05-28] MEDS: MUPIROCIN 2% OINT 22 GM TUBE TP SCH (09:39)
[2017-05-28] MEDS: CHLORHEXADINE GLUC 2% CLOTH TP SCH (09:42)
--- NOTE | 2017-05-28 10:05 | NUR ---
ASSESSED ERYTHEMA ON SACRUM AND SCROTUM WITH WOUND CARE NURSE. TOOK PICTURES OR WOUNDS, PROVIDED PT WITH WOUND CARE. BED BATH PROVIDED WITH AUDIO VISUAL PROJECT MANAGER. WOUND CARE NURSE RECOMMENDED Z BETHANY FOR SACRUM AND SCROTUM ERYTHEMA. PT REPOSITIONED. PT STABLE, NO SIGNS OF DISTRESS NOTED. BED IN LOW POSITION, CALL LIGHT WITHIN REACH. WILL CONTINUE TO MONITOR.
[2017-05-28] MEDS: NACL 0.9% 1,000 ML IV SCH ×2 (10:32→23:02)
--- NOTE | 2017-05-28 10:39 | NUR ---
WOUND CARE EVALUATION NOTE: REASON FOR EVALUATION: SACRAL AND SCROTUM REDNESS COMPLETE SKIN ASSESSMENT DONE ON THIS 72 Y/O MALE PATIENT FROM [facility], WITH INITIAL DIAGNOSIS OF LABORED BREATHING AND DIFFUSE JOINT PAIN. PAST MEDICAL HISTORY INCLUDE SEVERE RHEUMATOID ARTHRITIS, HTN,CANCER AND A FIB. ALL ABOVE INFORMATION WAS OBTAINED FROM THE ADMISSION H&P. LABS ARE WBC 5.4, H/H 11.9/35.3, GLUCOSE 82. PATIENT IS AWAKE, ALERT AND ORIENTED X4 AND UNABLE TO FOLLOW COMMANDS. SKIN WARM TO TOUCH WNL, TOENAILS ARE SLIGHTLY THICKENED, NO EDEMA,, WITH FEW HAIR GROWTH AND +2 BILATERAL PEDAL PULSES. #16 FC PATENT WITH CLEAR YELLOW URINE OUTPUT, BOWEL INCONTINENT. NEEDS MODERATE ASSISTANCE IN TURNING. INITIAL PLAN OF CARE AND PRESSURE PREVENTIVE MEASURES DISCUSSED WITH PATIENT AND PRIMARY NURSE PT. ABLE TO VERBALIZE UNDERSTANDING. 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 -ASSESS AND MONITOR SKIN CONDITION DURING POSITION CHANGE, PLEASE PAY PARTICULAR ATTENTION TO SACRALCOCCYX, ELBOWS AND HEELS -OFFLOAD BILATERAL HEELS BY PLACING PILLOWS UNDER CALVES AT ALL TIMES, UNLESS OTHERWISE CONTRAINDICATED -KEEP SKIN CLEAN AND DRY AT ALL TIMES. -PRESSURE REDISTRIBUTION SURFACE THERAPY. RECOMMENDATIONS DISCUSSED WITH PRIMARY RN WILL FOLLOW UP PATIENT Q7-10 DAYS AND PRN. PLEASE CONTACT WOUND CARE NURSE FOR ANY CONCERNS, QUESTIONS AND CHANGES IN WOUND CONDITION.
[2017-05-28] MEDS: MORPHINE SULFATE 2 MG/ML SYR IVP PRN ×2 (12:26→17:50)
[2017-05-28] MEDS: ALUMINUM HYD/MAG/SIMETHICONE 30 ML UDC PO PRN (12:26)
[2017-05-28] MEDS: Z-GUARD PASTE TP SCH ×2 (12:28→17:33)
--- NOTE | 2017-05-28 12:37 | NUR ---
PT REFUSED SCHEDULED MEDICATION CARAFATE. ADMINISTERED PRN MEDICATIONS MYLANTA FOR GI UPSET AND MORPHINE FOR PAIN PER PT REQUEST. PT TOLERATED WELL. PT STABLE, NO SIGNS OF DISTRESS NOTED. BED IN LOW POSITION, CALL LIGHT WITHIN REACH. WILL CONTINUE TO MONITOR.
[2017-05-28] MEDS ORDERED: Gentamicin Per Pharmacy MC (13:56)
--- NOTE | 2017-05-28 14:40 | NUR ---
CALLED [facility] TO GIVE REPORT, THEY INFORMED ME PT WAS GOING TO THEIR OTHER FACILITY, [facility] IN ROOM 7A. CALLED [facility] AT [phone] AND GAVE REPORT TO EVAN. EVAN SAID SHE WOULD BE OFF BY THE TIME THE PT GOT THERE SO SHE WOULD GIVE MY PHONE NUMBER AND EXTENSION TO THE NURSE WHO WILL BE TAKING CARE OF PT. EVAN VERBALIZED UNDERSTANDING ON CONTINUITY OF CARE.
--- NOTE | 2017-05-28 14:45 | NUR ---
SPOKE WITH DR BEARD ABOUT DC GENTAMYCIN ORDER CLARIFICATION. ROUTE, DOSAGE, FREQUENCY, AND END DATE OF MEDICATION NEED TO BE CLARIFIED ON ORDER. WILL AWAIT ORDERS.
[2017-05-28] MEDS ORDERED: [UNRECOGNIZED DRUG - CODE] IV (15:00)
--- NOTE | 2017-05-28 15:00 | NUR ---
SPOKE WITH DR BEARD ABOUT PT REQUEST FOR INFLUENZA VACCINE. WILL PUT ORDER IN.
--- NOTE | 2017-05-28 15:45 | NUR ---
PAGED DR BEARD TO FOLLOW UP ON THE INFLUENZA VACCINE THAT PT REQUESTED. NO CURRENT ORDER FOR VACCINE.
--- NOTE | 2017-05-28 17:14 | NUR ---
PT REFUSED TO LEAVE/BE TRANSFERRED TO [facility]. PT STATES HE "DOES NOT LIKE CHANGES, CHANGES ARE USUALLY BAD." HE STATES HE WAS SUPPOSED TO GO TO [facility] AND THAT [facility] WAS PROBABLY A "LOW BUDGET PLACE" AND THAT HE WOULD NOT GO, EXPLAINED TO PATIENT THAT [facility] AND [facility] WERE [employer] AND THEY WERE JUST ACROSS THE STRE[address] FROM EACH OTHER. STILL, PT REFUSED ASKING TO CALL [facility] TO LOOK FOR A BED FOR HIM THERE. PT WAS ADVISED HE MIGHT LOSE HIS BED AT [facility] AND THAT THE ONLY OTHER BED AVAILABLE WAS AT [facility]. PT STATED "I WILL NOT GO BACK THERE, AND I WILL NOT GO TO [facility]. I AM WAITING FOR MY GIRLFRIEND TO CALL, I WILL NOT GARCIA ANYTHING." EMS WAITED FOR 25 MINUTES UNTIL THEY HAD TO LEAVE. MARTHA IN CASE MANAGEMENT WAS NOTIFIED. DR KIRK WAS NOTIFIED.
--- NOTE | 2017-05-28 17:25 | NUR ---
[facility] WAS NOTIFIED OF PATIENT'S DECISION TO LOOK FOR ANOTHER PLACE.
--- NOTE | 2017-05-28 17:45 | NUR ---
PATIENT BEING SEEN BY DR. EPSTEIN AND DR. KIRK REGARDING PATIENT CONCERNS ABOUT DISCHARGE TO [facility] . PATIENT AGREES TO WAIT FOR DC FOR TOMORROW TO [facility]. WILL CALL [facility] AND NOTIFY THEM OF NEW ORDERS.
--- NOTE | 2017-05-28 17:50 | NUR ---
SPOKE WITH DR KIRK ABOUT CHANGING PT FROM TELE MONITORING TO MED SURG. SAID SHE WOULD PUT ORDER IN.
--- NOTE | 2017-05-28 18:06 | NUR ---
PT REFUSED CARAFATE MEDICATION. PT STABLE, NO SIGNS OF DISTRESS NOTED. BED IN LOW POSITION, CALL LIGHT WITHIN REACH. WILL CONTINUE TO MONITOR.
--- NOTE | 2017-05-28 19:27 | NUR ---
ENDORSED PT TO FELT CUTTING MACHINE OPERATOR RN. PT IN STABLE CONDITION.
--- NOTE | 2017-05-28 19:35 | NUR ---
RECEIVED FROM AM RN IN BED SITTING UP POSITION AND WATCHING TV. ABLE TO VERBALIZE NEEDS WELL. NO SOB. DENIES ANY PAIN AT THIS TIME. NOTED WITH FORGETFULNESS. CALL LIGHT WITH IN REACH. RAPID RESPONSE EXPLAINED TO PT. DX. OF UTI. IVF SITE TO RIGHT FOREARM INTACT AND NO INFILTRATION NOTED. WITH NS AT 80 ML/H.
--- NOTE | 2017-05-28 20:30 | NUR ---
RECEIVED REPORT FROM ANOTHER NIGHT NURSE. PATIENT IS RESTING IN BED, WATCHING TELEVISION, ABLE TO MAKE NEEDS KNOWN. WITH NO S/S OF DISTRESS NOTED, NO COMPLAINTS OF PAIN AT THIS TIME. ON CONTACT PRECAUTIONS FOR MRSA NARES. ON TELE MONITORING. IV NOTED ON THE RIGHT FA 20 G, INTACT AND PATENT. LANDAVERDE CATHETER IN PLACE DRAINING TO YELLOW URINE. REORIENTED PATIENT TO THE UNIT, VERBALIZED UNDERSTANDING. WILL CONTINUE TO MONITOR. ALL NEEDS ATTENDED. CALL LIGHT WITHIN REACH. SAFETY CHECKS IN PLACE.
[2017-05-28] MEDS: ZOLPIDEM 10 MG TAB PO SCH (21:02)
[2017-05-28] MEDS: DONEPEZIL 10 MG TAB PO SCH (21:03)
[2017-05-28] MEDS: QUEtiapine FUMARATE 100 MG TAB PO SCH (21:03)
--- NOTE | 2017-05-28 21:09 | NUR ---
DUE MEDS GIVEN, WELL TOLERATED BY PATIENT. WILL CONTINUE TO MONITOR. ALL NEEDS ATTENDED. CALL LIGHT WITHIN REACH. SAFETY CHECKS IN PLACE.
[2017-05-29] VITALS: BP 106/64
[2017-05-29] MEDS: SUCRALFATE 1 GM TAB PO SCH ×3 (00:44→12:45)
[2017-05-29] MEDS: GENTAMICIN 100 MG in DEXTROSE 5% 100 ML IV SCH (00:45)
--- NOTE | 2017-05-29 00:45 | NUR ---
VITAL SIGNS STABLE. NO S/S OF DISTRESS. NO COMPLAINTS OF PAIN AT THIS TIME. IV OF GENTAMYCIN HANGED. WILL CONTINUE TO MONITOR. ALL NEEDS ATTENDED. CALL LIGHT WITHIN REACH. SAFETY CHECKS IN PLACE.
--- NOTE | 2017-05-29 02:15 | NUR ---
PT SEEN ASLEEP. NO S/S OF DISTRESS. WILL CONTINUE TO MONITOR FOR ANY CHANGES.
--- NOTE | 2017-05-29 04:00 | NUR ---
VITAL SIGNS STABLE. NO S/S OF DISTRESS. NO COMPLAINTS OF PAIN. SAYS HE HAS VOICES TELLING HIM TO HURT HIMSELF BUT HAS NO PLANS OF HURTING HIMSELF. WILL CONTINUE TO MONITOR FOR ANY CHANGES. Addendum: 05/29/17 at 0624 by Nena Pinon RN OTHER PATIENT
--- NOTE | 2017-05-29 04:00 | NUR ---
VITALS STABLE. WILL CONTINUE TO MONITOR. ALL NEEDS ATTENDED. CALL LIGHT WITHIN REACH. SAFETY CHECKS IN PLACE.
--- NOTE | 2017-05-29 05:45 | NUR ---
DUE MEDS GIVEN. WELL TOLERATED BY PATIENT, WILL CONTINUE TO MONITOR.
[2017-05-29] MEDS: NACL 0.9% 1,000 ML IV SCH (05:48)
[2017-05-29 07:13] LABS: ANION GAP 8.2 (8-16); CARBON DIOXIDE 29.4 mmol/L (21-32); CHLORIDE 107 mmol/L (98-107); CREATININE 0.9 mg/dL (0.7-1.3); GLUCOSE 75 mg/dL (74-106); POTASSIUM 4.6 mmol/L (3.5-5.1); SODIUM SERUM 140 mmol/L (136-145); UREA NITROGEN, BLOOD 11 mg/dL (7-18)
--- NOTE | 2017-05-29 07:15 | NUR ---
ENDORSED TO AM SHIFT NURSE FOR CONTINUITY OF CARE, IN STABLE CONDITION.
--- NOTE | 2017-05-29 07:16 | NUR ---
RECEIVED REPORT FROM [employer] TECHNICIAN NURSE AT BEDSIDE FOR CONTINUITY OF CARE. PT IS AWAKE AND ORIENTED. INTRODUCED SELF AND UPDATED BOARD. PT IS BLIND IN LEFT EYE. IV IS ON RIGHT FA 20G NS AT 80ML/HR. SKIN IS WARM AND DRY, ERYTHEMA ON SACRUM AND COVERED WITH Z-GUARD. LANDAVERDE CATHETER IN PLACE. PT HAS NO COMPLAINTS AT THIS TIME. WILL CONTINUE TO MONITOR.
[2017-05-29 08:00] VITALS: BP 98/64
[2017-05-29] MEDS: METOPROLOL 25 MG TAB PO SCH (08:07)
[2017-05-29] MEDS: TAMSULOSIN 0.4 MG CAP PO SCH (08:07)
[2017-05-29] MEDS: VENLAFAXINE XR 75 MG CAPER PO SCH (08:08)
[2017-05-29] MEDS: POTASSIUM CHLORIDE 10 MEQ TABER PO SCH (08:08)
[2017-05-29] MEDS: FOLIC ACID 1 MG TAB PO SCH (08:08)
[2017-05-29] MEDS: BETHANECHOL 25 MG TAB PO SCH (08:08)
[2017-05-29] MEDS: LACTOBACILLUS RHAMNOSUS GG 1 EACH CAP PO SCH (08:09)
[2017-05-29] MEDS: PREGABALIN 50 MG CAP PO SCH (08:09)
[2017-05-29] MEDS: POLYETHYLENE GLYCOL 17 GM/PKT PO SCH (08:10)
[2017-05-29] MEDS: MUPIROCIN 2% OINT 22 GM TUBE TP SCH (08:11)
[2017-05-29] MEDS: Z-GUARD PASTE TP SCH ×2 (08:11→13:00)
[2017-05-29] MEDS: CHLORHEXADINE GLUC 2% CLOTH TP SCH (08:11)
[2017-05-29] MEDS: APIXABAN 2.5 MG TAB PO SCH (08:21)
[2017-05-29] MEDS: MORPHINE SULFATE 2 MG/ML SYR IVP PRN (08:28)
--- NOTE | 2017-05-29 08:33 | NUR ---
ADMINISTERED MORNING MEDS, INCLUDING MORPHINE. PT TOLERATED WELL. WILL CONTINUE TO MONITOR PT.
[2017-05-29] MEDS ORDERED: METHOTREXATE 2.5 MG TAB PO SCH (09:00)
--- NOTE | 2017-05-29 09:47 | NUR ---
PT RESTING IN BED. WATCHING TV. NO SIGNS OF DISTRESS. NO COMPLAINTS AT THIS TIME. WILL CONTINUE TO MONITOR PT.
--- NOTE | 2017-05-29 11:02 | NUR ---
CHECKED ON PT IN ROOM. TALKING ON PHONE. ACCOUNT PLANNER ASSISTING PT WITH BATH AND ORAL CARE. PT TOLERATED WELL. P/T IS WITH PT IN ROOM NOW. PT DENIES PAIN AT THIS TIME. WILL CONTINUE TO MONITOR.
--- NOTE | 2017-05-29 12:03 | NUR ---
1030 Met with pt and he is agreeable to go to [facility]. Called [facility] [phone] and spoke with Starr who stated that pt can go to room 7A. Called [facility] [phone] and spoke with Alondra and set up a gurney transport for pick pack worker time at 3pm and to [facility]. Assigned nurse Berenice provided with information and phone # for report.
[2017-05-29] MEDS: SODIUM PHOSPHATE 118 ML ENEM RC PRN (13:01)
--- NOTE | 2017-05-29 14:00 | NUR ---
PT AWARE OF TRANSFER TO [facility] TODAY AT 1500. PT SIGNED D/C FORMS AND INSTRUCTIONS. PT VERBBALIZED UNDERSTANDING. PT IS TALKING ON PHONE WILL WAIT FOR TRANSPORTERS TO ARRIVE AND CAR CLEANER.
--- NOTE | 2017-05-29 15:25 | NUR ---
REMOVED IV CATHETER FROM RIGHT FA. IV CATHETER TIP INTACT. APPLIED PRESSURE TO SITE. NO BLEEDING NOTED. INSERTED IV TO LEFT FA 20G SL. SITE INTACT. REMOVED ID BANDS AND CHANGED PT TO TRANSFER GOWN. PICKED UP BY TRANSPORTERS VIA GURNEY AND LEFT UNIT IN STABLE CONDITION. PT LEFT WITH ALL PERSONAL BELONGINGS.
== END 2017-05-29 15:15 | DRG 682 ==
LOC: MED 17:53 → MTU 19:52
PROVIDERS: ADMIT Family Medicine; ATTEND Family Medicine
DX: N17.0 Acute kidney failure with tubular necrosis (principal); G93.41 Metabolic encephalopathy; E44.0 Moderate protein-calorie malnutrition; N39.0 Urinary tract infection, site not specified; I48.2 Chronic atrial fibrillation; I10 Essential (primary) hypertension; E83.42 Hypomagnesemia; E83.51 Hypocalcemia; F32.9 Major depressive disorder, single episode, unspecified; F02.81 Dementia in other diseases classified elsewhere, unspecified severity, with behavioral disturbance; E11.9 Type 2 diabetes mellitus without complications; M06.9 Rheumatoid arthritis, unspecified; G89.4 Chronic pain syndrome; N28.1 Cyst of kidney, acquired; I25.10 Atherosclerotic heart disease of native coronary artery without angina pectoris; G30.9 Alzheimer's disease, unspecified; N31.9 Neuromuscular dysfunction of bladder, unspecified; E87.6 Hypokalemia; F41.9 Anxiety disorder, unspecified; Z79.01 Long term (current) use of anticoagulants; Z88.0 Allergy status to penicillin; Z79.891 Long term (current) use of opiate analgesic; Z74.01 Bed confinement status
CPT/HCPCS: 36415; 70450; 71010; 74150; 76770; 80048; 80053; 80170; 81001; 82140; 83036; 83735; 83880; 84100; 84436; 84443; 84479; 85025; 87070; 87081; 87086; 87186; 93005; 96365; 96375; 97110; 97140; 97530; 99285; J1580; J1956; J2001; J2270; J2405; J2543; J3010; J3475; J3480; J7030; J7060; J8610; Q0092

== ENCOUNTER 2017-12-04 09:52 | Emergency (ER) | payer OTHER ==
[~2017-12-04] VITALS: Ht 188 cm; Wt 72.6 kg
[~2017-12-04 09:52] MED LIST changes: +DEXL60EC PO; -DEXL60EC5 PO; +DONE10TA10 PO; -DONE10TA3 PO; +[UNRECOGNIZED DRUG - CODE] IV
[2017-12-04 09:57] VITALS: BP 134/77
--- NOTE | 2017-12-04 09:59 | NUR ---
PT BIBA TO ER BED 02
--- NOTE | 2017-12-04 10:00 | NUR ---
FROM [facility]REHAB. PER PATIENT NEEDS MED. REFIL. HX:AT. FIB,ARTHRITIS,COPD,BPH,DEPRESSION,SEIZURE. PT BIB AMBULANCE FROM [facility]. PT AWAKE,ALERT. NO S/S OF RESPITRATORY DISTRESS NOTED. ROOM AIR, LANDAVERDE CATH IN PLACE WITH YELLOW URINE NOTED. MD MADE AWARE OF PT STATUS.
--- NOTE | 2017-12-04 10:00 | NUR ---
CALLED [phone] FOR NEW BOARDING CARE PER .
[2017-12-04] MEDS ORDERED: MORPHINE SULFATE 4 MG/ML SYR IM ONE ×2 (10:05→14:50)
--- NOTE | 2017-12-04 10:18 | NUR ---
bilingual case manager simona at bedside to talk to md and pt.
--- NOTE | 2017-12-04 10:35 | NUR ---
Patient discharged with v/s stable. Written and verbal after care instructions given and explained. Patient alert, oriented and verbalized understanding of instructions. Ambulatory with steady gait. All questions addressed prior to discharge. ID band removed. Patient advised to follow up with PMD. Rx of tofacitinib given. Patient educated on indication of medication including possible reaction and side effects. Opportunity to ask questions provided and answered.
--- NOTE | 2017-12-04 10:53 | NUR ---
received phone call from [facility]/rehab georgina. per georgina he will tell his supervisor [employer] to arrange for picking up.
--- NOTE | 2017-12-04 11:26 | NUR ---
called [facility] care/rehab [phone] transferred to number 6 regarding picking up, no answer. will follow up.
--- NOTE | 2017-12-04 11:54 | NUR ---
CALLED THE FACILITY X2. GOT TRANSFERRED X2 NO ANSWER BOTH TIMES FROM THE NUMBER I WAS TRANSFERRED TO. ONE PERSON SAID, THEY WILL PAGE VIDEO NEWS EDITOR BUT STILL NO ANSWER
--- NOTE | 2017-12-04 13:05 | NUR ---
OFFERED PT LUNCH TRAY, FEED PT. PT ATE 40%
--- NOTE | 2017-12-04 14:59 | NUR ---
PER DR. LAZAR D/C PT NO MORE MORPHINE
[2017-12-04 15:00] VITALS: BP 137/92
--- NOTE | 2017-12-04 15:00 | NUR ---
[facility] TRANSPORTATION IN TO [employer] ARTIST PT VIA WHEELCHAIR, PT AWAKE, ALERT, ORIENTED. NO S/S OF RESPIRATORY DISTRESS NOTED. VITALS STABLE. BP 139/92. HR 80 .O2 SAT 100%, ON ROOM AIR. ALL PERSONAL BELONGINGS WITH PT.
== END 2017-12-04 15:00 | disposition home or self-care (01) ==
LOC: MED 09:52
DX: G89.29 Other chronic pain (principal); M79.1 Myalgia; I48.91 Unspecified atrial fibrillation; I10 Essential (primary) hypertension; Z88.0 Allergy status to penicillin; Z85.6 Personal history of leukemia
CPT/HCPCS: 96372; 99283; J2270